=== PATIENT | male | born 1930 | race Caucasian/White ===

== ENCOUNTER 2016-08-14 13:17 | Inpatient (IN) | payer OTHER ==
[~2016-08-14] VITALS: Ht 180.3 cm; Wt 72.6 kg
[~2016-08-14 13:17] MED LIST: CALC-838 PO; CYAN10006 IM; GLIM2TAB2 PO; LACT1CAP57 PO
[2016-08-14] MEDS ORDERED: ONDANSETRON HCL/PF 4 MG/2 ML VIAL IV ONE (14:30)
[2016-08-14] MEDS ORDERED: MORPHINE SULFATE INJ 2 MG/ML DISP.SYRIN IV ONE (14:30)
[2016-08-14] MEDS ORDERED: ONDANSETRON HCL/PF 4 MG/2 ML VIAL ONE (14:34)
[2016-08-14] MEDS ORDERED: MORPHINE SULFATE INJ 4 MG/ML DISP.SYRIN ONE (14:34)
[2016-08-14 14:44] LABS: BASOPHILS # (AUTO) 0.2 /CMM (0.0-0.2); BASOPHILS % (AUTO) 1.3 % (0.0-2.0); DIFF TOTAL % 100 %; EOSINOPHILS # (AUTO) 0.1 /CMM (0.0-0.7); EOSINOPHILS % (AUTO) 0.5 % (0.0-6.0); HEMATOCRIT 46 % (39-51); HEMOGLOBIN 15.1 g/dL (13.5-17.5); LYMPHOCYTES # (AUTO) 2.5 /CMM (0.8-4.8); LYMPHOCYTES % (AUTO) 18.2 % (20.0-44.0); MEAN CORPUSCULAR HEMOGLOBIN 28 PG (26.0-33.0); MEAN CORPUSCULAR HGB CONC 33 g/dl (31.0-36.0); MEAN CORPUSCULAR VOLUME 84 fL (80-96); MONOCYTES # (AUTO) 1.1 /CMM (0.1-1.30); MONOCYTES % (AUTO) 8.1 % (2.0-12.0); NEUTROPHILS # (AUTO) 9.8 /CMM (1.8-8.9); NEUTROPHILS % (AUTO) 71.9 % (43.0-81.0); PLATELET COUNT (AUTO) 294 /CMM (150-450); RED BLOOD CELL COUNT(AUTO) 5.46 MIL/uL (4.5-6.0); WHITE BLOOD COUNT (AUTO) 13.7 K/uL (4.3-11.0)
[2016-08-14 14:58] LABS: INR 1.06 (0.87-1.13); PROTHROMBIN TIME 11.1 SECS (9.5-12.7)
[2016-08-14 15:00] LABS: ALANINE AMINOTRANSFERASE 31 U/L (12-78); ALBUMIN 3.4 g/dL (3.4-5.0); ANION GAP 18 (5-14); ASPARTATE AMINOTRANSFERASE 16 U/L (15-37); BILIRUBIN,DIRECT 0.2 mg/dL (0.0-0.2); BILIRUBIN,TOTAL 1.3 mg/dL (0.2-1.0); CALCIUM, SERUM 8.8 mg/dL (8.5-10.1); CARBON DIOXIDE 20 mmol/L (21-32); CHLORIDE 104 mmol/L (98-107); CREATININE 2.1 mg/dL (0.6-1.3); GLUCOSE 210 mg/dL (74-106); INDIRECT BILIRUBIN 1.1 mg/dL (0.0-1.1); POTASSIUM 3.4 mmol/L (3.5-5.1); SODIUM SERUM 139 mmol/L (136-145); TOTAL PROTEIN, SERUM 7.5 g/dL (6.4-8.2); UREA NITROGEN, BLOOD 40 mg/dL (7-18)
[2016-08-14 15:02] LABS: TROPONIN I < 0.017 ng/mL (0.00-0.056)
[2016-08-14 15:06] LABS: LACTIC ACID 1.6 mmol/L (0.4-2.0)
[2016-08-14] MEDS ORDERED: LIDOCAINE VISCOUS 2% UD 15 ML UDC ONE (17:04)
[2016-08-14] MEDS ORDERED: IV NS 0.9% 1,000 ML IV PRN (17:12)
[2016-08-14] MEDS ORDERED: MAG HYDROX/AL HYDROX/SIMETH 30 ML UDC PO PRN (17:30)
[2016-08-14] MEDS ORDERED: Z GUARD REMEDY 2 OZ OINT TP PRN (17:30)
[2016-08-14] MEDS ORDERED: ENOXAPARIN SODIUM 40 MG/0.4 ML DISP.SYRIN SQ SCH (17:30)
[2016-08-14] MEDS ORDERED: MORPHINE SULFATE INJ 2 MG/ML DISP.SYRIN IV PRN (17:30)
[2016-08-14] MEDS ORDERED: ONDANSETRON HCL/PF 4 MG/2 ML VIAL IVP PRN (17:30)
[2016-08-14] MEDS ORDERED: ACETAMINOPHEN 325 MG TABLET PO PRN (17:30)
[2016-08-14] MEDS ORDERED: MAGNESIUM HYDROXIDE 30 ML UDC PO PRN (17:30)
[2016-08-14] MEDS ORDERED: CIPROFLOXACIN IV RTU 200 ML IV ONE (17:33)
[2016-08-14] MEDS ORDERED: IV SET PRIMARY PUMP SET 1 EA INFUS.SET MC ONE ×3 (17:33→22:15)
[2016-08-14] MEDS ORDERED: METRONIDAZOLE 500MG/ NS 100ML 100 ML IV ONE (17:33)
[2016-08-14] MEDS: METRONIDAZOLE 500MG/ NS 100ML 500 MG in PREMIX 1 EA IV SCH (17:40)
[2016-08-14] MEDS: CIPROFLOXACIN IV RTU 400 MG in PREMIX 1 EA IV SCH (17:40)
[2016-08-14] MEDS: ENOXAPARIN SODIUM 30 MG/0.3 ML DISP.SYRIN SQ SCH (18:00)
[2016-08-14 18:30] VITALS: BP 139/79
[2016-08-14] MEDS ORDERED: POTASSIUM CHLORIDE 10 MEQ TABLET.SA PO ONE (18:30)
[2016-08-14] MEDS ORDERED: POTASSIUM CL. PREMIX PERIPHER. 50 ML IV SCH (18:41)
[2016-08-14 20:00] VITALS: BP 155/77
[2016-08-14 20:09] VITALS: BP 155/77
[2016-08-14] MEDS: ZOLPIDEM TARTRATE 5 MG TABLET PO PRN (20:43)
[2016-08-14] MEDS ORDERED: SECONDARY IV SET 1 EA INFUS.SET MC ONE (21:46)
[2016-08-15] MEDS ORDERED: METRONIDAZOLE 500MG/ NS 100ML 100 ML IV ONE (00:25)
[2016-08-15] MEDS ORDERED: CIPROFLOXACIN IV RTU 200 ML IV ONE (00:29)
[2016-08-15] MEDS ORDERED: SECONDARY IV SET 1 EA INFUS.SET MC ONE ×2 (01:05→15:56)
[2016-08-15] MEDS: METRONIDAZOLE 500MG/ NS 100ML 500 MG in PREMIX 1 EA IV SCH ×3 (01:16→20:21)
[2016-08-15] MEDS: CIPROFLOXACIN IV RTU 400 MG in PREMIX 1 EA IV SCH ×2 (04:11→18:17)
[2016-08-15 06:45] LABS: BASOPHILS % (AUTO) 0.2 % (0.0-2.0); CALCIUM, SERUM 7.9 mg/dL (8.5-10.1); CREATININE 2.1 mg/dL (0.6-1.3); DIFF TOTAL % 100 %; EOSINOPHILS % (AUTO) 0.5 % (0.0-6.0); HEMATOCRIT 40 % (39-51); HEMOGLOBIN 13.1 g/dL (13.5-17.5); LYMPHOCYTES # (AUTO) 1.3 /CMM (0.8-4.8); MEAN CORPUSCULAR HEMOGLOBIN 28 PG (26.0-33.0); MEAN CORPUSCULAR HGB CONC 33 g/dl (31.0-36.0); MEAN CORPUSCULAR VOLUME 84 fL (80-96); MONOCYTES # (AUTO) 0.6 /CMM (0.1-1.30); MONOCYTES % (AUTO) 7.5 % (2.0-12.0); NEUTROPHILS # (AUTO) 6.5 /CMM (1.8-8.9); NEUTROPHILS % (AUTO) 76.8 % (43.0-81.0); PHOSPHORUS 4.1 mg/dL (2.5-4.9); PLATELET COUNT (AUTO) 225 /CMM (150-450); POTASSIUM 3.9 mmol/L (3.5-5.1); RED BLOOD CELL COUNT(AUTO) 4.74 MIL/uL (4.5-6.0); TOTAL PROTEIN, SERUM 6.5 g/dL (6.4-8.2); WHITE BLOOD COUNT (AUTO) 8.4 K/uL (4.3-11.0)
[2016-08-15 08:00] VITALS: BP 138/76
[2016-08-15] MEDS: PANTOPRAZOLE 40 MG VIAL IV SCH (08:13)
[2016-08-15] MEDS: methylPREDNISolone SOD SUCC 125 MG/2ML VIAL IV SCH ×2 (08:24→18:17)
[2016-08-15] MEDS ORDERED: CIPROFLOXACIN IV RTU 400 MG in PREMIX 1 EA IV SCH (08:30)
[2016-08-15] MEDS: GLIMEPIRIDE 1 MG TABLET PO SCH (09:00)
[2016-08-15] MEDS: LACTOBACILLUS RHAMNOSUS GG 1 EACH CAP.SPRINK PO SCH (09:00)
[2016-08-15] MEDS: CALCIUM CARB 600MG /VIT D 1 EACH TABLET PO SCH (09:00)
[2016-08-15] MEDS ORDERED: IV D5/0.45 NACL 1,000 ML IV PRN (11:30)
[2016-08-15] MEDS ORDERED: DIATR MEGLU/DIATRIZOATE SODIUM 120 ML BOTTLE (GASTROGRAPHIN) ONE (12:16)
[2016-08-15] MEDS ORDERED: Magnesium 1GM/D5W 100ML PREMIX 100 ML IV SCH (12:30)
[2016-08-15 16:00] VITALS: BP 155/77
[2016-08-15 20:00] VITALS: BP 135/69
[2016-08-15] MEDS: ENOXAPARIN SODIUM 30 MG/0.3 ML DISP.SYRIN SQ SCH (20:56)
[2016-08-15] MEDS: ZOLPIDEM TARTRATE 5 MG TABLET PO PRN (21:25)
[2016-08-16] MEDS: CIPROFLOXACIN IV RTU 400 MG in PREMIX 1 EA IV SCH (03:16)
[2016-08-16] MEDS: METRONIDAZOLE 500MG/ NS 100ML 500 MG in PREMIX 1 EA IV SCH ×2 (04:26→13:00)
[2016-08-16 07:01] LABS: BASOPHILS % (AUTO) 0.2 % (0.0-2.0); DIFF TOTAL % 100 %; HEMATOCRIT 39 % (39-51); HEMOGLOBIN 13.1 g/dL (13.5-17.5); LYMPHOCYTES # (AUTO) 1.1 /CMM (0.8-4.8); LYMPHOCYTES % (AUTO) 15.1 % (20.0-44.0); MEAN CORPUSCULAR HEMOGLOBIN 28 PG (26.0-33.0); MEAN CORPUSCULAR HGB CONC 34 g/dl (31.0-36.0); MEAN CORPUSCULAR VOLUME 84 fL (80-96); MONOCYTES # (AUTO) 0.4 /CMM (0.1-1.30); MONOCYTES % (AUTO) 5.3 % (2.0-12.0); NEUTROPHILS % (AUTO) 79.4 % (43.0-81.0); PLATELET COUNT (AUTO) 248 /CMM (150-450); RED BLOOD CELL COUNT(AUTO) 4.67 MIL/uL (4.5-6.0); WHITE BLOOD COUNT (AUTO) 7.5 K/uL (4.3-11.0)
[2016-08-16 07:19] LABS: CALCIUM, SERUM 8.2 mg/dL (8.5-10.1); CREATININE 1.7 mg/dL (0.6-1.3); PHOSPHORUS 3.3 mg/dL (2.5-4.9); POTASSIUM 3.7 mmol/L (3.5-5.1)
[2016-08-16] MEDS ORDERED: LEVOTHYROXINE SODIUM 75 MCG TABLET PO SCH (07:30)
[2016-08-16] MEDS: GLIMEPIRIDE 1 MG TABLET PO SCH (08:40)
[2016-08-16] MEDS: CALCIUM CARB 600MG /VIT D 1 EACH TABLET PO SCH (08:40)
[2016-08-16] MEDS: methylPREDNISolone SOD SUCC 125 MG/2ML VIAL IV SCH (08:40)
[2016-08-16] MEDS: LACTOBACILLUS RHAMNOSUS GG 1 EACH CAP.SPRINK PO SCH (08:40)
[2016-08-16] MEDS: PANTOPRAZOLE 40 MG VIAL IV SCH (08:40)
[2016-08-16 13:19] LABS: KETONES,URINE NEGATIVE (NEGATIVE); LEUKOCYTE ESTERASE ,URINE NEGATIVE (NEGATIVE); PH,URINE 5.5 (5.0-8.0)
[2016-08-16 13:29] LABS: ADD UA MICROSCOPIC YES
[2016-08-16 13:31] LABS: ADD URINE CULTURE NO; RBC,URINE NONE SEEN /HPF (0-2); WBC,URINE 0-2 /HPF (0-3)
== END 2016-08-16 14:32 | disposition home or self-care (01) | DRG 385 ==
LOC: ER 13:21 → TELE2 17:43 → MEDSG2 18:55
PROVIDERS: ADMIT Family Medicine; ATTEND Family Medicine
DX: K50.90 Crohn's disease, unspecified, without complications (principal); N17.0 Acute kidney failure with tubular necrosis; K56.60 Unspecified intestinal obstruction; J98.11 Atelectasis; E87.6 Hypokalemia; D50.9 Iron deficiency anemia, unspecified; Z87.891 Personal history of nicotine dependence; N18.9 Chronic kidney disease, unspecified; E11.22 Type 2 diabetes mellitus with diabetic chronic kidney disease; E86.0 Dehydration; N20.0 Calculus of kidney; E11.65 Type 2 diabetes mellitus with hyperglycemia; J84.10 Pulmonary fibrosis, unspecified; Z87.442 Personal history of urinary calculi
CPT/HCPCS: 36415; 71010-TC; 74250-TC; 80048-TC; 80053-TC; 80076-TC; 81000-TC; 83605-TC; 83735-TC; 84100-TC; 84484-TC; 85025-TC; 85730-TC; 87040-TC; 87081-TC; A4216; A4606; C9113; J0744; J1650; J2270; J2405; J2930; J3475; J3480; J3490; J7030; Q9963; Z7610